=== PATIENT | female | born 1990 | race Caucasian/White ===

== ENCOUNTER 2016-10-15 18:45 | Emergency (ER) | payer OTHER ==
[~2016-10-15] VITALS: Ht 144.8 cm; Wt 51.7 kg
[2016-10-15 19:12] LABS: HEMATOCRIT 37.3 % (36.0-46.0); MCH 31.8 PG (29.0-34.0); MCV 93.3 FL (83-99); MEAN PLAT.VOLUME 8.5 uM^3 (9.5-12.4); PLATELET COUNT 328 K/uL (156-360); RBC DIS.WIDTH-SD 44.7 % (39-53); WHITE BLOOD COUNT 8.1 K/uL (4.1-10.2)
[2016-10-15 19:22] LABS: CHLORIDE 104 mEq/L (99-109); POTASSIUM 3.6 mEq/L (3.7-5.4); SODIUM 136 mEq/L (136-147)
[2016-10-15 19:25] LABS: GLUCOSE 103 mg/dL (70-99)
[2016-10-15 19:26] LABS: ANION GAP 8 MEQ/L (2-14); TOTAL BILIRUBIN 0.2 mg/dL (0.0-1.0)
[2016-10-15 19:28] LABS: ALKALINE PHOSPHATASE 52 IU/L (3-129); GFR ESTIMATE (CALCULATED) > 59 mL/min/
[2016-10-15 19:29] LABS: UREA NITROGEN (BUN) 12 mg/dL (9-23)
[2016-10-15 19:32] LABS: LIPASE 48 U/L (1.0-51.0)
[2016-10-15 19:41] LABS: QUANTITATIVE HCG < 4.0 MIU/ML
[2016-10-15 19:54] LABS: ADD MIUA? YES; BILIRUBIN NEGATIVE; BLOOD NEGATIVE; COLOR STRAW ((YELLOW)); GLUCOSE (STRIP) NEGATIVE; KETONES NEGATIVE; LEUKOCYTES TRACE; NITRITE NEGATIVE; PROTEIN (STRIP) NEGATIVE; SPECIFIC GRAVITY 1.009 (1.000-1.030); UROBILINOGEN 0.2 MG/DL (0.2-1.0)
[2016-10-15 20:00] LABS: BACTERIA NONE SEEN /HPF; EPITHELIAL CELLS RARE /HPF; MUCUS TRACE /LPF; RED BLOOD CELLS 0-5 /HPF (0-5); UCUL ADDED? NO; WHITE BLOOD CELLS 0-5 /HPF (0-5)
[2016-10-15] MEDS ORDERED: ZOFRAN ODT4 MG PO (20:13)
[2016-10-15 20:30] VITALS: BP 122/78
== END 2016-10-15 20:32 | disposition home or self-care (01) ==
LOC: EME 18:45
PROVIDERS: Physician Assistant Medical
DX: R10.11 Right upper quadrant pain (principal); R11.2 Nausea with vomiting, unspecified; F17.200 Nicotine dependence, unspecified, uncomplicated
CPT/HCPCS: 76705; 80053; 81003; 83690; 84702; 85027; 99281; 99285

== ENCOUNTER 2016-12-05 21:26 | Emergency (ER) | payer OTHER ==
[~2016-12-05] VITALS: Ht 144.8 cm; Wt 53.1 kg
[~2016-12-05 21:26] MED LIST: ZOFRAN ODT4 MG PO
[2016-12-05] MEDS ORDERED: VIBRAMYCIN100 MG PO (22:21)
[2016-12-05 22:36] VITALS: BP 115/83
== END 2016-12-05 22:37 | disposition home or self-care (01) ==
LOC: EME 21:26
PROC: 0H9BXZZ Drainage of Right Upper Arm Skin, External Approach (ICD-10-PCS; principal; 2016-12-05)
DX: L02.411 Cutaneous abscess of right axilla (principal); Z20.818 Contact with and (suspected) exposure to other bacterial communicable diseases; J06.9 Acute upper respiratory infection, unspecified
CPT/HCPCS: 99281; 99283

== ENCOUNTER 2017-03-07 01:32 | Emergency (ER) | payer OTHER ==
[~2017-03-07 01:32] MED LIST changes: +VIBRAMYCIN100 MG PO
[2017-03-07 01:44] LABS: BASOPHIL COUNT 0.1 K/uL (0-0.1); EOSINOPHIL (%) 0.6 % (0-5); EOSINOPHIL COUNT 0.1 K/uL (0-0.3); HEMATOCRIT 38.4 % (36.0-46.0); IMMATURE GRANULOCYTE (%) 0.8 % (0.0-0.7); IMMATURE GRANULOCYTE COUNT 0.1 K/uL; INSTRUMENT ABS NEUTROPHIL CT 6.5 K/uL; LYMPHOCYTE COUNT 3.3 K/uL (1.0-2.8); MCHC 33.3 G/DL (30.0-36.0); MONOCYTE (%) 6.5 % (3-12); MONOCYTE COUNT 0.7 K/uL (0-0.8); NEUTROPHIL (%) 60.7 % (45-76); NEUTROPHIL COUNT 6.5 K/uL (1.8-6.4); PLATELET COUNT 341 K/uL (156-360); RBC DIS.WIDTH-CV 13.9 % (11.8-14.6); RBC DIS.WIDTH-SD 49.8 % (39-53); WHITE BLOOD COUNT 10.8 K/uL (4.1-10.2)
[2017-03-07 01:55] LABS: AMYLASE 64 IU/L (1-118); CHLORIDE 110 mEq/L (99-109); POTASSIUM 3.6 mEq/L (3.7-5.4); SODIUM 143 mEq/L (136-147)
[2017-03-07 01:57] LABS: GLUCOSE 103 mg/dL (70-99)
[2017-03-07 01:58] LABS: ANION GAP 10 MEQ/L (2-14)
[2017-03-07 02:00] LABS: SERUM ETHYL ALCOHOL 223 mg/dL
[2017-03-07 02:01] LABS: GFR ESTIMATE (CALCULATED) > 59 mL/min/
[2017-03-07 02:02] LABS: UREA NITROGEN (BUN) 6 mg/dL (9-23)
[2017-03-07 02:04] LABS: LIPASE 57 U/L (1.0-51.0)
[2017-03-07 02:10] LABS: QUANTITATIVE HCG < 4.0 MIU/ML
[2017-03-07 02:43] LABS: ADD MIUA? YES; BILIRUBIN NEGATIVE; BLOOD LARGE; COLOR STRAW ((YELLOW)); GLUCOSE (STRIP) NEGATIVE; KETONES NEGATIVE; LEUKOCYTES NEGATIVE; NITRITE NEGATIVE; PROTEIN (STRIP) 30; SPECIFIC GRAVITY 1.015 (1.000-1.030); UROBILINOGEN 0.2 MG/DL (0.2-1.0)
[2017-03-07 02:48] LABS: BACTERIA RARE /HPF; EPITHELIAL CELLS RARE /HPF; MUCUS NONE SEEN /LPF; RED BLOOD CELLS 0-5 /HPF (0-5); UCUL ADDED? NO; WHITE BLOOD CELLS 0-5 /HPF (0-5)
[2017-03-07 02:51] LABS: AMPHETAMINE NEGATIVE (500 ng/mL); BARBITURATES NEGATIVE (200 ng/mL); BENZODIAZEPINES NEGATIVE (150 ng/mL); COCAINE NEGATIVE (150 ng/mL); METHADONE NEGATIVE (200 ng/mL); METHAMPHETAMINE NEGATIVE (500 ng/mL); OPIATES (MORPHINE) NEGATIVE (100 ng/mL); OXYCODONE NEGATIVE (100 ng/mL); PHENCYCLIDINE NEGATIVE (25 ng/mL); PROPOXYPHENE NEGATIVE (300 ng/mL); THC CANNABINOIDS NEGATIVE (50 ng/mL); TRICYCLIC ANTIDEPRESSANTS NEGATIVE (300 ng/mL)
[2017-03-07 02:52] LABS: INTERNAL CONTROLS VALID? YES
[2017-03-07] MEDS ORDERED: MOTRIN600 MG PO (03:24)
== END 2017-03-07 03:38 | disposition home or self-care (01) ==
LOC: TRA 01:32
PROVIDERS: Emergency Medicine
DX: S22.32XA Fracture of one rib, left side, initial encounter for closed fracture (principal); T14.8XXA Other injury of unspecified body region, initial encounter; R55 Syncope and collapse; R40.2410 Glasgow coma scale score 13-15, unspecified time; F10.129 Alcohol abuse with intoxication, unspecified; Y90.7 Blood alcohol level of 200-239 mg/100 ml; V57.1XXA Passenger in pick-up truck or van injured in collision with fixed or stationary object in nontraffic accident, initial encounter; M25.512 Pain in left shoulder; Z88.0 Allergy status to penicillin
CPT/HCPCS: 70450; 71260; 72125; 72129; 72132; 74177; 80048; 81003; 82150; 83690; 84702; 85025; 86850; 86900; 86901; 99281; 99285; G0480